=== PATIENT | female | born 2000 | race Caucasian/White ===

== ENCOUNTER 2020-04-13 13:49 | Emergency (ER) | payer OTHER ==
[2020-04-13 16:36] LABS: HEMOGLOBIN 12.4 gm/dl (12.3-15.3); RED BLOOD COUNT 4.13 M/UL (4.00-5.10); WHITE BLOOD COUNT 6.9 K/UL (4.5-11.0)
[2020-04-13 17:03] LABS: BUN/CREATININE RATIO 12 (0-10)
== END 2020-04-13 18:50 | disposition home or self-care (01) ==
LOC: ER1 13:49
PROVIDERS: Physician Assistant
DX: O20.0 Threatened abortion (principal); Z3A.01 Less than 8 weeks gestation of pregnancy
CPT/HCPCS: 76830; 80053; 81001; 84702; 85025; 86850; 86900; 86901; 99284; J2790

== ENCOUNTER → 2020-04-16 | Outpatient (CLI) | payer OTHER | LOC: LAB 12:44 | DX: O20.0 Threatened abortion (principal) | CPT/HCPCS: 36415; 84702 ==

== ENCOUNTER 2020-12-12 22:09 | Outpatient (CLI) | payer OTHER | END 2020-12-13 00:48 | disposition home or self-care (01) | LOC: GENOP 22:09 | DX: O23.13 Infections of bladder in pregnancy, third trimester (principal); O99.013 Anemia complicating pregnancy, third trimester; D64.9 Anemia, unspecified; Z79.899 Other long term (current) drug therapy; Z3A.28 28 weeks gestation of pregnancy; Z20.822 Contact with and (suspected) exposure to COVID-19 | CPT/HCPCS: 59025; 81001; 96360; U0002 ==

== ENCOUNTER → 2020-12-24 | Outpatient (CLI) | payer OTHER | LOC: GENOP 16:58 | DX: O42.913 Preterm premature rupture of membranes, unspecified as to length of time between rupture and onset of labor, third trimester (principal); Z3A.31 31 weeks gestation of pregnancy; O99.343 Other mental disorders complicating pregnancy, third trimester; F32.9 Major depressive disorder, single episode, unspecified; O23.43 Unspecified infection of urinary tract in pregnancy, third trimester; N39.0 Urinary tract infection, site not specified; O99.013 Anemia complicating pregnancy, third trimester | CPT/HCPCS: 76815; 81001; 83518 ==

== ENCOUNTER 2021-02-06 00:49 | Outpatient (CLI) | payer OTHER | END 2021-02-06 02:55 | disposition home or self-care (01) | LOC: GENOP 00:49 | DX: O47.03 False labor before 37 completed weeks of gestation, third trimester (principal); Z3A.36 36 weeks gestation of pregnancy | CPT/HCPCS: G0463 ==

== ENCOUNTER 2021-02-11 02:11 | Outpatient (CLI) | payer OTHER | END 2021-02-11 04:17 | disposition home or self-care (01) | LOC: GENOP 02:11 | DX: O47.1 False labor at or after 37 completed weeks of gestation (principal); Z3A.37 37 weeks gestation of pregnancy ==

== ENCOUNTER 2021-02-17 04:27 | Outpatient (CLI) | payer OTHER | END 2021-02-17 07:29 | disposition home or self-care (01) | LOC: GENOP 04:27 | DX: O99.891 Other specified diseases and conditions complicating pregnancy (principal); O47.1 False labor at or after 37 completed weeks of gestation; O99.343 Other mental disorders complicating pregnancy, third trimester; O23.43 Unspecified infection of urinary tract in pregnancy, third trimester; N39.0 Urinary tract infection, site not specified; N89.8 Other specified noninflammatory disorders of vagina; F32.A Depression, unspecified; F41.9 Anxiety disorder, unspecified; F43.10 Post-traumatic stress disorder, unspecified; Z3A.38 38 weeks gestation of pregnancy | CPT/HCPCS: 81001; 83518 ==

== ENCOUNTER 2021-02-21 16:45 | Inpatient (IN) | payer OTHER ==
[~2021-02-21] VITALS: Ht 160 cm; Wt 64.4 kg
[2021-02-21 18:11] LABS: HEMOGLOBIN 8.2 gm/dl (12.3-15.3); RED BLOOD COUNT 3.5 M/UL (4.00-5.10); WHITE BLOOD COUNT 8.2 K/UL (4.5-11.0)
[2021-02-21] MEDS ORDERED: PRENATAL TABLE1 EAC1 PO (18:49)
[2021-02-21] MEDS ORDERED: TUMS200 MG PO (18:50)
[2021-02-22] MEDS ORDERED: FERROUS SULFAT325 MG PO (19:21)
[2021-02-22] MEDS ORDERED: IBUPROFEN600 MG PO (19:21)
[2021-02-22] MEDS ORDERED: DOCUSATE SODIU100 MG PO (19:21)
[2021-02-23 06:01] LABS: HEMOGLOBIN 7.8 gm/dl (12.3-15.3)
== END 2021-02-24 17:37 | disposition home or self-care (01) | DRG 807 ==
LOC: GENOP 16:45 → OB 17:49
PROVIDERS: ADMIT Obstetrics & Gynecology
PROC: 10E0XZZ Delivery of Products of Conception, External Approach (ICD-10-PCS; principal; 2021-02-22)
PROC: 0KQM0ZZ Repair Perineum Muscle, Open Approach (ICD-10-PCS; 2021-02-22)
PROC: 10907ZC Drainage of Amniotic Fluid, Therapeutic from Products of Conception, Via Natural or Artificial Opening (ICD-10-PCS; 2021-02-22)
PROC: 3E033VJ Introduction of Other Hormone into Peripheral Vein, Percutaneous Approach (ICD-10-PCS; 2021-02-22)
PROC: 4A1H8CZ Monitoring of Products of Conception, Cardiac Rate, Via Natural or Artificial Opening Endoscopic (ICD-10-PCS; 2021-02-22)
PROC: 10H073Z Insertion of Monitoring Electrode into Products of Conception, Via Natural or Artificial Opening (ICD-10-PCS; 2021-02-22)
PROC: 10H07YZ Insertion of Other Device into Products of Conception, Via Natural or Artificial Opening (ICD-10-PCS; 2021-02-22)
PROC: 3E0DXGC Introduction of Other Therapeutic Substance into Mouth and Pharynx, External Approach (ICD-10-PCS; 2021-02-22)
PROC: 3E0234Z Introduction of Serum, Toxoid and Vaccine into Muscle, Percutaneous Approach (ICD-10-PCS; 2021-02-22)
DX: O99.02 Anemia complicating childbirth (principal); Z37.0 Single live birth; Z20.822 Contact with and (suspected) exposure to COVID-19; D50.0 Iron deficiency anemia secondary to blood loss (chronic); O70.1 Second degree perineal laceration during delivery; Z3A.39 39 weeks gestation of pregnancy; Z23 Encounter for immunization
CPT/HCPCS: 36415; 51702; 81001; 85014; 85018; 85025; 85461; 86850; 86900; 86901; 90715; J2405; J2790; J7120